=== PATIENT | female | born 1990 | race Caucasian/White ===

== ENCOUNTER 2017-03-06 17:11 | Emergency (ER) | payer SELFPAY ==
[2017-03-06 17:20] VITALS: BP 114/75
--- NOTE | 2017-03-06 18:12 | RAD ---
HISTORY: Subacute trauma, left lateral rib pain COMPARISONS: None VIEWS: 7, Frontal view of the chest with frontal and oblique views of the left hemithorax FINDINGS: There is no displaced rib fracture or pneumothorax. The visualized lungs are clear. IMPRESSION: NO DISPLACED RIB FRACTURE OR PNEUMOTHORAX
--- NOTE | 2017-03-06 18:41 | UC ---
Truncal Trauma HPI - HPI Summary HPI Summary: Shopping cart hit left ribs, tenderness and soft tissue swelling at area of injury. No fever, no shortness of breath. 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 Hx Last Menstrual Period: 03/02/17 Onset/Duration: Sudden Onset, Lasting Days, Still Present Onset Of Pain: Post Accident Severity Initially: Mild Severity Currently: Mild Mechanism Of Injury: Blunt Trauma Aggravating Factor(s): Movement, Deep Breathing, Cough Alleviating factor(s): Nothing Associated Signs And Symptoms: Positive: Negative - Allergies/Home Medications Allergies/Adverse Reactions: Allergies Allergy/AdvReac Type Severity Reaction Status Date / Time No Known Allergies Allergy Verified 02/03/14 14:29 Home Medications: Home Medications Ibuprofen TAB* [Motrin TAB* 800 MG] 800 mg PO Q6H 03/06/17 [History Confirmed ] PMH/Surg Hx/FS Hx/Imm Hx Previously Healthy: Yes - Surgical History Surgical History: Yes Surgery Procedure, Year, and Place: X3, choley - Family History Known Family History: Positive: None Negative: Renal Disease, Respiratory Disease - Social History Occupation: Employed Full-time Lives: With Family Alcohol Use: None Substance Use Type: None Smoking Status (MU): Light Every Day Tobacco Smoker Type: Cigarettes Review of Systems Constitutional: Negative Skin: Negative Eyes: Negative ENT: Negative Respiratory: Negative Cardiovascular: Negative Gastrointestinal: Negative Genitourinary: Negative Motor: Negative Neurovascular: Negative Musculoskeletal: Arthralgia, Myalgia Neurological: Negative Psychological: Negative All Other Systems Reviewed And Are Negative: Yes Physical Exam Triage Information Reviewed: Yes Appearance: Well-Appearing, Well-Nourished, Pain Distress - mild Vital Signs: Initial Vital Signs Temp 98.1 F 03/06/17 17:15 Pulse 80 03/06/17 17:15 Resp 18 03/06/17 17:15 BP 114/75 03/06/17 17:15 Pulse Ox 100 03/06/17 17:15 Vital Signs Reviewed: Yes Eye Exam: Normal ENT Exam: Normal ENT: Positive: Normal ENT inspection, Hearing grossly normal, TMs normal Dental Exam: Normal Neck exam: Normal Neck: Positive: Supple, Nontender Respiratory Exam: Normal Respiratory: Positive: Chest non-tender, Lungs clear, Normal breath sounds, No respiratory distress, No accessory muscle use Cardiovascular Exam: Normal Cardiovascular: Positive: RRR, No Murmur, Pulses Normal Abdominal Exam: Normal Musculoskeletal: Positive: Strength Intact, ROM Intact, Other: - tender to palpation left ribs Neurological Exam: Normal Psychological Exam: Normal Skin Exam: Normal Truncal Trauma Course/Dx - Differential Dx/Diagnosis Differential Diagnosis/HQI/PQRI: Chest Wall Contusion, Rib Fracture Provider Diagnoses: left rib contusion/sprain Discharge - Discharge Plan Condition: Stable Disposition: HOME Prescriptions: HYDROcodone/ACETAMIN 5-325 MG* [[place] 5-325 TAB*] 1 tab PO Q8H PRN #9 tab MDD THREE TABS PRN Reason: Pain Patient Education Materials: Rib Contusion (ED) Referrals: [facility] [Outside] Berto VOSS,Landon Marino [Primary Care Provider] -
== END 2017-03-06 18:30 | disposition home or self-care (01) ==
LOC: UCEAST 17:11
DX: S20.212A Contusion of left front wall of thorax, initial encounter (principal); S23.41XA Sprain of ribs, initial encounter; W22.8XXA Striking against or struck by other objects, initial encounter; Y93.9 Activity, unspecified; Y92.9 Unspecified place or not applicable; Y99.9 Unspecified external cause status; Z72.0 Tobacco use
CPT/HCPCS: 99213; G0463

== ENCOUNTER 2017-03-13 14:46 | Emergency (ER) | payer SELFPAY ==
[2017-03-13 14:54] VITALS: BP 131/85
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
[2017-03-13] MEDS ORDERED: HYDROcodone/ACETAMIN 5-325 MG* 1 TAB PO ONE (15:05)
--- NOTE | 2017-03-13 16:01 | RAD ---
HISTORY: Left anterior pain COMPARISONS: March 06, 2017 VIEWS: 5, Frontal view of the chest with frontal and oblique views of the left hemithorax FINDINGS: There is no displaced rib fracture or pneumothorax. The visualized lungs are clear. IMPRESSION: THERE IS NO DISPLACED RIB FRACTURE OR PNEUMOTHORAX. IF THERE IS PERSISTENT CLINICAL CONCERN FOR OSSEOUS PATHOLOGY OF THE RIBS, BONE SCANNING MAY BE MORE SENSITIVE.
== END 2017-03-13 16:20 | disposition home or self-care (01) ==
LOC: UCEAST 14:46
DX: S20.211A Contusion of right front wall of thorax, initial encounter (principal); F17.210 Nicotine dependence, cigarettes, uncomplicated; W22.8XXA Striking against or struck by other objects, initial encounter; Y92.89 Other specified places as the place of occurrence of the external cause
CPT/HCPCS: 99212; G0463

== ENCOUNTER 2017-08-02 16:59 | Emergency (ER) | payer OTHER ==
[2017-08-02 18:38] LABS: Urine Bacteria Absent (Absent); Urine Bilirubin Negative (Negative); Urine Glucose Negative (Negative); Urine Nitrite Negative (Negative)
[2017-08-02 18:51] LABS: Hematocrit 34 % (35-47); Mean Corpuscular HGB Conc 33 g/dl (31-36); Mean Corpuscular Hemoglobin 27 pg (27-31); Mean Corpuscular Volume 82 fL (80-97); Mean Platelet Volume 9 um3 (7.4-10.4); Red Cell Distribution Width 17 % (10.5-15); White Blood Count 6.2 10^3/ul (3.5-10.8)
[2017-08-02 19:07] LABS: ALT 12 U/L (7-52); AST 11 U/L (13-39); Albumin 4.2 g/dL (3.2-5.2); Alkaline Phosphatase 72 U/L (34-104); Amylase 41 U/L (29-103); Anion Gap 7 mmol/L (2-11); BUN/Creatinine Ratio 12.7 (8-20); Blood Urea Nitrogen 7 mg/dL (6-24); C Reactive Protein < 1.00 mg/L (< 5.00); CO2 Carbon Dioxide 26 mmol/L (22-32); Calcium 9.2 mg/dL (8.6-10.3); Chloride 108 mmol/L (101-111); EGFR African American 171.8 (>60); EGFR Non-African American 133.6 (>60); Globulin 2.7 g/dL (2-4); Glucose 80 mg/dL (70-100); Lipase 29 U/L (11.0-82.0); Magnesium 2.2 mg/dL (1.9-2.7); Sodium 141 mmol/L (133-145); Total Protein 6.9 g/dL (6.4-8.9)
[2017-08-02] MEDS ORDERED: Potassium Chlor TAB* 20 MEQ TAB.ER PO ONE (19:59)
[2017-08-02 21:27] VITALS: BP 119/73
--- NOTE | 2017-08-03 02:36 | ED ---
Luis Jung Nilda, scribed for Batsheva Shankar MD on 08/02/17 at 2113 . Complex/Multi-Sys Presentation - HPI Summary HPI Summary: This patient is a 26 year old F presenting to [facility] accompanied by friends with a chief complaint of constant severe dental pain (lower back molar on left and right) for the past two months. The patient rates the pain 8/10 in severity. Symptoms aggravated by nothing. Dental pain alleviated by "Goodys packets" ( acetaminophen)though not alleviated by Anbesol. Patient also reports left abd pain, insomnia due to pain, and occasional SOB. Pt notes normal BM today. Per triage note, pt had tubal ligation 4 years ago but has had 3 positive tests (ClearBlue brand name) during the past two days and is worried if she is . Pt brought one of the positive tests to show me and it does indeed read "positive". Patient denies pain and burning with urination. Pt states that she "missed her period for July". LNMP June 20. NKDA including penicillin. Medications include vitamins. She states she is supposed to be on iron pills but is not taking them due to taste. She takes gummy vitamins instead. - History Of Current Complaint Chief Complaint: EDAbdPain Time Seen by Provider: 08/02/17 18:17 Hx Obtained From: Patient Onset/Duration: Sudden Onset, Lasting Days Timing: Constant Severity Currently: Severe - 8/10 Severity Initially: Severe Location: Pain At: - lower molars bilat Character: Sharp Aggravating Factor(s): nothing Alleviating Factor(s): Dental pain alleviated by Goodys packets though not alleviated by Anbesol. Associated Signs And Symptoms: Positive: Other - constant severe dental pain ( lower back molar on left and right),reports left abd pain, insomnia due to pain , and occasional SOB. Pt notes normal BM today. Per triage note, pt had tubal ligation 4 years ago but has had 3 positive tests (ClearBlue) during the past two days. Patient denies pain and burning with urination. Missed period. - Allergies/Home Medications Allergies/Adverse Reactions: Allergies Allergy/AdvReac Type Severity Reaction Status Date / Time Acetaminophen Allergy Severe See Comment Verified 03/13/17 14:55 [From Tylenol Children's] PMH/Surg Hx/FS Hx/Imm Hx Previously Healthy: Yes Sensory History: Denies: Hx Legally Blind EENT History: Denies: Hx Deafness Psychiatric History: Reports: Hx Depression Denies: Hx Eating Disorder, Hx of Violent Episodes Against Others - Surgical History Surgery Procedure, Year, and Place: X3, cholecystectomy; tubal ligation Infectious Disease History: No Infectious Disease History: Denies: Traveled Outside the [place] in Last 30 Days - Family History Known Family History: Positive: Hypertension, Other - cancer- grandfather Negative: Renal Disease, Respiratory Disease - Social History Alcohol Use: None Hx Substance Use: No Substance Use Type: Reports: None Hx Tobacco Use: Yes Smoking Status (MU): Current Every Day Smoker Type: Cigarettes Amount Used/How Often: 1 PPD Have You Smoked in the Last Year: Yes Review of Systems Constitutional: Negative Positive: Dental Pain Cardiovascular: Negative Positive: Shortness Of Breath Positive: Abdominal Pain, Other - normal BM Positive: other - positive tests, missed period. Negative: burning, pain Skin: Negative Neurological: Other - insomnia due to pain Psychological: Normal All Other Systems Reviewed And Are Negative: Yes Physical Exam Triage Information Reviewed: Yes Vital Signs On Initial Exam: Initial Vitals Temp Pulse Resp BP Pulse Ox 98.0 F 82 18 116/77 100 08/02/17 17:03 08/02/17 17:03 08/02/17 17:03 08/02/17 17:03 08/02/17 17:03 Vital Signs Reviewed: Yes Appearance: Positive: Well-Appearing, Well-Nourished, Pain Distress Skin: Positive: Warm, Skin Color Reflects Adequate Perfusion Head/Face: Positive: Normal Head/Face Inspection Eyes: Positive: EOMI, BRENT, Conjunctiva Clear ENT: Positive: Normal ENT inspection, Pharynx normal Dental: Positive: Gross Decay/Caries @, Dental Fracture @, Other - Left lower first molar broken and dental carries; Right lower second molar broken with dental carries Neck: Positive: Supple, Nontender, No Lymphadenopathy Respiratory/Lung Sounds: Positive: Clear to Auscultation, Breath Sounds Present , Other - no respiratory distress Cardiovascular: Positive: RRR, Other - brisk capillary refill, normal pulses, S1 , S2. Negative: Murmur Abdomen Description: Positive: No Organomegaly, Soft, Other: - mildly diffuse tenderness (more on left than right), no rebound. Negative: Bruit, CVA Tenderness (R), CVA Tenderness (L), Distended, Guarding, Hernia @, Hepatomegaly , Peritoneal Signs, Pulsatile Mass, Splenomegaly Bowel Sounds: Positive: Present Musculoskeletal: Positive: Strength/ROM Intact Neurological: Positive: Sensory/Motor Intact, Alert, Oriented to Person Place, Time, Facial Symmetry, Speech Normal, Other - nml muscle tone Psychiatric: Positive: Normal - Valorie Coma Scale Coma Scale Total: 15 Diagnostics - Vital Signs Vital Signs Temp Pulse Resp BP Pulse Ox 08/02/17 17:03 98.0 F 82 18 116/77 100 - Laboratory Lab Results: Lab Results 08/02/17 08/02/17 08/02/17 Range/Units 18:20 18:42 18:42 WBC (3.5-10.8) 10^3/ul RBC (4.0-5.4) 10^6/ul Hgb (12.0-16.0) g/dl Hct (35-47) % MCV (80-97) fL MCH (27-31) pg MCHC (31-36) g/dl RDW (10.5-15) % Plt Count (150-450) 10^3/ul MPV (7.4-10.4) um3 Neut % (Auto) (38-83) % Lymph % (Auto) (25-47) % [place] % (Auto) (1-9) % Eos % (Auto) (0-6) % Baso % (Auto) (0-2) % Absolute Neuts (auto) (1.5-7.7) 10^3/ul Absolute Lymphs (auto) (1.0-4.8) 10^3/ul Absolute Monos (auto) (0-0.8) 10^3/ul Absolute Eos (auto) (0-0.6) 10^3/ul Absolute Basos (auto) (0-0.2) 10^3/ul Absolute Nucleated RBC 10^3/ul Nucleated RBC % INR (Anticoag Therapy) (0.89-1.11) Sodium 141 (133-145) mmol/L Potassium 3.0 L (3.5-5.0) mmol/L Chloride 108 (101-111) mmol/L Carbon Dioxide 26 (22-32) mmol/L Anion Gap 7 (2-11) mmol/L BUN 7 (6-24) mg/dL Creatinine 0.55 (0.51-0.95) mg/dL Est GFR ( Amer) 171.8 (>60) Est GFR (Non-Af Amer) 133.6 (>60) BUN/Creatinine Ratio 12.7 (8-20) Glucose 80 (70-100) mg/dL Lactic Acid (0.5-2.0) mmol/L Calcium 9.2 (8.6-10.3) mg/dL Magnesium 2.2 (1.9-2.7) mg/dL Total Bilirubin 0.30 (0.2-1.0) mg/dL AST 11 L (13-39) U/L ALT 12 (7-52) U/L Alkaline Phosphatase 72 (34-104) U/L C-Reactive Protein < 1.00 (< 5.00) mg/L B-Natriuretic Peptide 18 ( - 100) pg/mL Total Protein 6.9 (6.4-8.9) g/dL Albumin 4.2 (3.2-5.2) g/dL Globulin 2.7 (2-4) g/dL Albumin/Globulin Ratio 1.6 (1-3) Amylase 41 (29-103) U/L Lipase 29 (11.0-82.0) U/L Beta HCG, Quant < 0.60 mIU/mL Urine Color Yellow Urine Appearance Clear Urine pH 7.0 (5-9) Ur Specific [place] 1.018 (1.010-1.030) Urine Protein Negative (Negative) Urine Ketones Negative (Negative) Urine Blood 1+ H (Negative) Urine Nitrate Negative (Negative) Urine Bilirubin Negative (Negative) Urine Urobilinogen Negative (Negative) Ur Leukocyte Esterase Negative (Negative) Urine WBC (Auto) Trace(0-5/hpf) (Absent) Urine RBC (Auto) 3+(>10/hpf) H (Absent) Ur Squamous Epith Cells Present H (Absent) Urine Bacteria Absent (Absent) Urine Glucose Negative (Negative) 08/02/17 08/02/17 08/02/17 Range/Units 18:42 18:42 18:42 WBC 6.2 (3.5-10.8) 10^3/ul RBC 4.10 (4.0-5.4) 10^6/ul Hgb 11.0 L (12.0-16.0) g/dl Hct 34 L (35-47) % MCV 82 (80-97) fL MCH 27 (27-31) pg MCHC 33 (31-36) g/dl RDW 17 H (10.5-15) % Plt Count 210 (150-450) 10^3/ul MPV 9 (7.4-10.4) um3 Neut % (Auto) 49.5 (38-83) % Lymph % (Auto) 38.2 (25-47) % [place] % (Auto) 7.3 (1-9) % Eos % (Auto) 4.2 (0-6) % Baso % (Auto) 0.8 (0-2) % Absolute Neuts (auto) 3.1 (1.5-7.7) 10^3/ul Absolute Lymphs (auto) 2.4 (1.0-4.8) 10^3/ul Absolute Monos (auto) 0.4 (0-0.8) 10^3/ul Absolute Eos (auto) 0.3 (0-0.6) 10^3/ul Absolute Basos (auto) 0 (0-0.2) 10^3/ul Absolute Nucleated RBC 0 10^3/ul Nucleated RBC % 0.1 INR (Anticoag Therapy) 1.02 (0.89-1.11) Sodium (133-145) mmol/L Potassium (3.5-5.0) mmol/L Chloride (101-111) mmol/L Carbon Dioxide (22-32) mmol/L Anion Gap (2-11) mmol/L BUN (6-24) mg/dL Creatinine (0.51-0.95) mg/dL Est GFR ( Amer) (>60) Est GFR (Non-Af Amer) (>60) BUN/Creatinine Ratio (8-20) Glucose (70-100) mg/dL Lactic Acid 1.8 (0.5-2.0) mmol/L Calcium (8.6-10.3) mg/dL Magnesium (1.9-2.7) mg/dL Total Bilirubin (0.2-1.0) mg/dL AST (13-39) U/L ALT (7-52) U/L Alkaline Phosphatase (34-104) U/L C-Reactive Protein (< 5.00) mg/L B-Natriuretic Peptide ( - 100) pg/mL Total Protein (6.4-8.9) g/dL Albumin (3.2-5.2) g/dL Globulin (2-4) g/dL Albumin/Globulin Ratio (1-3) Amylase (29-103) U/L Lipase (11.0-82.0) U/L Beta HCG, Quant mIU/mL Urine Color Urine Appearance Urine pH (5-9) Ur Specific [place] (1.010-1.030) Urine Protein (Negative) Urine Ketones (Negative) Urine Blood (Negative) Urine Nitrate (Negative) Urine Bilirubin (Negative) Urine Urobilinogen (Negative) Ur Leukocyte Esterase (Negative) Urine WBC (Auto) (Absent) Urine RBC (Auto) (Absent) Ur Squamous Epith Cells (Absent) Urine Bacteria (Absent) Urine Glucose (Negative) Result Diagrams: 08/02/17 18:42 08/02/17 18:42 Lab Statement: Any lab studies that have been ordered have been reviewed, and results considered in the medical decision making process. Complex Multi-Symp Course/Dx Assessment/Plan: Pt is a 26 y/o F with a chief complaint of dental pain as well as request for test. Four years ago, pt had tubal ligation but for the past two days pt has had 3 positive tests at home. Pt does not want narcotics prescribed for pain. Medications and allergies reviewed. Beta HCG Quantitative is negative (<0.60). Pt is stable and will be D/C with diagnosis of dental abscess, acute abd pain, and evaluation for and prescription for amoxicillin. Pt is agreeable with this plan. - Diagnoses Provider Diagnoses: Dental abscess, Evaluation for , Acute abdominal pain Discharge - Discharge Plan Condition: Stable Disposition: HOME Prescriptions: Amoxicillin PO (*) [Amoxicillin 500 MG CAP*] 500 mg PO TID #30 cap Patient Education Materials: Dental Abscess (ED), Acute Abdominal Pain (ED) Forms: *Work Release Referrals: Berto VOSS,Landon Marino [Primary Care Provider] - 2 Days Additional Instructions: If another week goes by and you do not get your period, repeat test. Take amoxicillin and ibuprofen as directed. See dentist as soon as possible. RETURN TO THE EMERGENCY DEPARTMENT FOR CHANGING OR WORSENING SYMPTOMS. The documentation as recorded by the Luis montero Nilda accurately reflects the service I personally performed and the decisions made by me, Batsheva Shankar MD.
== END 2017-08-02 21:26 | disposition home or self-care (01) ==
LOC: ED 16:59
DX: R06.02 Shortness of breath (principal); R10.9 Unspecified abdominal pain; K04.7 Periapical abscess without sinus; Z34.90 Encounter for supervision of normal pregnancy, unspecified, unspecified trimester
CPT/HCPCS: 36415; 80053; 81003; 81015; 82150; 83605; 83690; 83735; 83880; 84702; 85025; 85610; 86140; 99284; A9270-GY

== ENCOUNTER 2018-11-11 19:25 | Emergency (ER) | payer SELFPAY ==
[2018-11-11 20:15] LABS: Urine Appearance Cloudy; Urine Bacteria Absent (Absent); Urine Bilirubin Negative (Negative); Urine Blood Negative (Negative); Urine Color Yellow; Urine Glucose Negative (Negative); Urine Ketones Trace (Negative); Urine Nitrite Negative (Negative); Urine Protein Negative (Negative); Urine Red Blood Cell Absent (Absent); Urine Specific Gravity 1.031 (1.010-1.030); Urine Squamous Epithelial Cell Present (Absent); Urine Urobilinogen Negative (Negative); Urine White Blood Cell 2+(11-20/hpf) (Absent)
[2018-11-11 21:39] LABS: ABS Basophils 0.1 10^3/ul (0-0.2); ABS Eosinophils 0.5 10^3/ul (0-0.6); ABS Lymphocytes 2.9 10^3/ul (1.0-4.8); ABS Monocytes 0.6 10^3/ul (0-0.8); ABS Neutrophils 3.4 10^3/ul (1.5-7.7); ABS Nucleated RBC 0 10^3/ul; Eosinophil % 6.3 %; Hematocrit 32 % (35-47); Hemoglobin 10.5 g/dl (12.0-16.0); Lymphocyte % 39.2 %; Mean Corpuscular HGB Conc 33 g/dl (31-36); Mean Corpuscular Hemoglobin 26 pg (27-31); Mean Corpuscular Volume 77 fL (80-97); Mean Platelet Volume 8.2 fL (7.4-10.4); Nucleated Red Blood Cells % 0; Platelet Count 263 10^3/ul (150-450); Red Blood Count 4.12 10^6/ul (4.00-5.40); Red Cell Distribution Width 19 % (10.5-15); White Blood Count 7.5 10^3/ul (3.5-10.8)
[2018-11-11 21:57] LABS: ALT 9 U/L (7-52); AST 11 U/L (13-39); Albumin 4.2 g/dL (3.2-5.2); Albumin/Globulin Ratio 1.8 (1-3); Alkaline Phosphatase 73 U/L (34-104); Anion Gap 6 mmol/L (2-11); BUN/Creatinine Ratio 17.2 (8-20); Blood Urea Nitrogen 11 mg/dL (6-24); C Reactive Protein < 1.00 mg/L (<8.01); CO2 Carbon Dioxide 28 mmol/L (22-32); Calcium 9.1 mg/dL (8.6-10.3); Chloride 106 mmol/L (101-111); EGFR African American 134.7 (>60); EGFR Non-African American 111.3 (>60); Globulin 2.4 g/dL (2-4); Glucose 99 mg/dL (70-100); Potassium 3.5 mmol/L (3.5-5.0); Sodium 140 mmol/L (135-145); Total Protein 6.6 g/dL (6.4-8.9)
[2018-11-11 22:03] LABS: HCG Pregnancy < 0.60 mIU/mL
[2018-11-11] MEDS ORDERED: Ketorolac INJ* 30 MG/ML 1 ML VIAL IV PUSH ONE (23:17)
--- NOTE | 2018-11-12 00:01 | ED ---
GI/ HPI - HPI Summary HPI Summary: 27-year-old female presents with abdominal pain for the past 2 days. States that it mostly on the right side of her abdomen. She admits to right-sided back pain. No injury. No loss of bowel or bladder. No saddle anesthesias. She denies any urinary symptoms. No hematuria. No blood in her stool. She states she did have loose stool today. She admits to abnormal vaginal discharge but she just had a pelvic exam when was seen at [place] yesterday. She denies any fevers. She admits to some nausea but no vomiting. She's never had this pain before. She's had her gallbladder removed. She states she's had decreased appetite. She has been using a lot of ibuprofen. - History of Current Complaint Chief Complaint: EDAbdPain Time Seen by Provider: 11/11/18 23:10 Stated Complaint: ABD PAIN SHOT ALL THE WAY DOWN MY LEG/CHEST PER PT Hx Last Menstrual Period: 1 WEEK AGO Pain Intensity: 7 - Allergy/Home Medications Allergies/Adverse Reactions: Allergies Allergy/AdvReac Type Severity Reaction Status Date / Time MS Acetaminophen Allergy Severe See Comment Verified 03/13/17 14:55 [From Tylenol [facility]] PMH/Surg Hx/FS Hx/Imm Hx Endocrine/Hematology History: Denies: Hx Anticoagulant Therapy Cardiovascular History: Denies: Hx Myocardial Infarction Sensory History: Denies: Hx Legally Blind, Hx Deafness Opthamlomology History: Denies: Hx Legally Blind Psychiatric History: Reports: Hx Depression Denies: Hx Eating Disorder, Hx of Violent Episodes Against Others - Surgical History Surgery Procedure, Year, and Place: X3, cholecystectomy; tubal ligation Infectious Disease History: No Infectious Disease History: Denies: Traveled Outside the [place] in Last 30 Days - Family History Known Family History: Positive: None, Hypertension, Other - cancer- grandfather Negative: Renal Disease, Respiratory Disease - Social History Alcohol Use: None Hx Substance Use: No Substance Use Type: Reports: None Hx Tobacco Use: Yes Smoking Status (MU): Current Every Day Smoker Type: Cigarettes Amount Used/How Often: 1 PPD Have You Smoked in the Last Year: Yes Review of Systems Negative: Fever Negative: Chest Pain Negative: Shortness Of Breath Positive: Abdominal Pain, Nausea. Negative: Vomiting, Diarrhea All Other Systems Reviewed And Are Negative: Yes Physical Exam Triage Information Reviewed: Yes Vital Signs On Initial Exam: Initial Vitals Temp Pulse Resp BP Pulse Ox 98.6 F 105 18 143/84 97 11/11/18 19:28 11/11/18 19:28 11/11/18 19:28 11/11/18 19:28 11/11/18 19:28 Vital Signs Reviewed: Yes Appearance: Positive: Well-Appearing Skin: Positive: Warm, Dry Head/Face: Positive: Normal Head/Face Inspection Eyes: Positive: Normal, Conjunctiva Clear ENT: Positive: Pharynx normal Respiratory/Lung Sounds: Positive: Clear to Auscultation, Breath Sounds Present Cardiovascular: Positive: Normal, RRR Abdomen Description: Positive: Soft, Other: - diffusely tender Bowel Sounds: Positive: Present Musculoskeletal: Positive: Other - tenderness lower right side of back, neg SLR , good pulses Neurological: Positive: Normal Psychiatric: Positive: Normal Diagnostics - Vital Signs Vital Signs Temp Pulse Resp BP Pulse Ox 11/11/18 23:20 81 97/73 99 11/11/18 23:19 74 99 11/11/18 21:32 98.5 F 85 18 119/74 98 11/11/18 19:28 98.6 F 105 18 143/84 97 - Laboratory Lab Results: Lab Results 11/11/18 11/11/18 11/11/18 Range/Units 19:49 21:27 21:27 WBC 7.5 (3.5-10.8) 10^3/ul RBC 4.12 (4.00-5.40) 10^6/ul Hgb 10.5 L (12.0-16.0) g/dl Hct 32 L (35-47) % MCV 77 L (80-97) fL MCH 26 L (27-31) pg MCHC 33 (31-36) g/dl RDW 19 H (10.5-15) % Plt Count 263 (150-450) 10^3/ul MPV 8.2 (7.4-10.4) fL Neut % (Auto) 45.6 % Lymph % (Auto) 39.2 % [place] % (Auto) 7.9 % Eos % (Auto) 6.3 % Baso % (Auto) 1.0 % Absolute Neuts (auto) 3.4 (1.5-7.7) 10^3/ul Absolute Lymphs (auto) 2.9 (1.0-4.8) 10^3/ul Absolute Monos (auto) 0.6 (0-0.8) 10^3/ul Absolute Eos (auto) 0.5 (0-0.6) 10^3/ul Absolute Basos (auto) 0.1 (0-0.2) 10^3/ul Absolute Nucleated RBC 0 10^3/ul Nucleated RBC % 0 Sodium 140 (135-145) mmol/L Potassium 3.5 (3.5-5.0) mmol/L Chloride 106 (101-111) mmol/L Carbon Dioxide 28 (22-32) mmol/L Anion Gap 6 (2-11) mmol/L BUN 11 (6-24) mg/dL Creatinine 0.64 (0.51-0.95) mg/dL Est GFR ( Amer) 134.7 (>60) Est GFR (Non-Af Amer) 111.3 (>60) BUN/Creatinine Ratio 17.2 (8-20) Glucose 99 (70-100) mg/dL Calcium 9.1 (8.6-10.3) mg/dL Total Bilirubin 0.20 (0.2-1.0) mg/dL AST 11 L (13-39) U/L ALT 9 (7-52) U/L Alkaline Phosphatase 73 (34-104) U/L C-Reactive Protein < 1.00 (<8.01) mg/L Total Protein 6.6 (6.4-8.9) g/dL Albumin 4.2 (3.2-5.2) g/dL Globulin 2.4 (2-4) g/dL Albumin/Globulin Ratio 1.8 (1-3) Lipase 32 (11.0-82.0) U/L Beta HCG, Quant < 0.60 mIU/mL Urine Color Yellow Urine Appearance Cloudy Urine pH 5.0 (5-9) Ur Specific [place] 1.031 H (1.010-1.030) Urine Protein Negative (Negative) Urine Ketones Trace A (Negative) Urine Blood Negative (Negative) Urine Nitrate Negative (Negative) Urine Bilirubin Negative (Negative) Urine Urobilinogen Negative (Negative) Ur Leukocyte Esterase Trace A (Negative) Urine WBC (Auto) 2+(11-20/hpf) A (Absent) Urine RBC (Auto) Absent (Absent) Ur Squamous Epith Cells Present A (Absent) Urine Bacteria Absent (Absent) Urine Glucose Negative (Negative) Urine Ascorbic Acid * A (Negative) Result Diagrams: 11/11/18 21:27 11/11/18 21:27 Lab Statement: Any lab studies that have been ordered have been reviewed, and results considered in the medical decision making process. - Ultrasound No standard instances Ultrasound Interpretation Completed By: Radiologist Summary of Ultrasound Findings: Sonographically normal uterus and ovaries. Re-Evaluation - Re-Evaluation First Eval Re-Evaluation Time: 00:15 Comment: patient does not want to do CT anymore. GIGU Course/Dx - Course Course Of Treatment: 27-year-old female presents with abdominal pain for the past 2 days. States that it mostly on the right side of her abdomen. She admits to right-sided back pain. No injury. No loss of bowel or bladder. No saddle anesthesias. She denies any urinary symptoms. No hematuria. No blood in her stool. She states she did have loose stool today. She admits to abnormal vaginal discharge but she just had a pelvic exam when was seen at [place] yesterday. She denies any fevers. She admits to some nausea but no vomiting. She's never had this pain before. She's had her gallbladder removed. She states she's had decreased appetite. She has been using a lot of ibuprofen. On exam has diffuse abdominal tenderness. Patient though is flinching when not even touching the abdomen so cannot really evaluate truly where is tender. Tenderness of right sided lower back. Negative straight leg raise. Neurovascular intact. wbc normal. CRP normal. Urine is likely contaminant will wait for culture to see if a treat as UTI as no symptoms at this time. Patient declined pelvic has just had a pelvic done. Ultrasound is normal. Discussed getting a CT and initially patient wanted a CT but then decided to hold off. Told if symptoms worsen to return. patient requesting toradol for pain. Patient understands agrees the plan. - Diagnoses Differential Diagnoses - Female: Appendicitis, Ovarian Cyst, STD, Urinary Tract Infection Provider Diagnoses: Abdominal pain Discharge - Sign-Out/Discharge Documenting (check all that apply): Patient Departure Patient Received Moderate/Deep Sedation with Procedure: No - Discharge Plan Condition: Good Disposition: HOME Prescriptions: Ketorolac TAB * [Toradol TAB *] 10 mg PO Q8H #12 tab Patient Education Materials: Acute Abdominal Pain (ED) Referrals: Berto VOSS,Landon Marino [Primary Care Provider] - Additional Instructions: Take Tylenol or ibuprofen every 6 hours for pain apply heat Follow up with primary Return to ED if develop any new or worsening symptoms - Billing Disposition and Condition Condition: GOOD Disposition: Home
[2018-11-12 01:48] VITALS: BP 115/66
== END 2018-11-12 01:00 | disposition home or self-care (01) ==
LOC: ED 19:25
DX: R10.9 Unspecified abdominal pain (principal); R10.2 Pelvic and perineal pain; R11.0 Nausea; F17.210 Nicotine dependence, cigarettes, uncomplicated
CPT/HCPCS: 36415; 76856; 80053; 81003; 81015; 83690; 84702; 85025; 86140; 87086; 96374; 99283; J1885

== ENCOUNTER → 2018-11-20 18:17 | Emergency (ER) | payer SELFPAY ==
[~2018-11-20 18:17] MED LIST: Clindamycin 900 MG/D5W BAG(*) 900 MG/50 ML BAG IVPB ONE; Iohexol 300* (CONTRAST) 10 ML SDV IV ONE; Morphine 10 MG/ML VIAL (1 ml) IV ONE; Ondansetron INJ* 2 MG/ML VIAL IV ONE
--- NOTE | 2018-11-20 18:58 | ED ---
Throat Pain/Nasal Congestion - HPI Summary HPI Summary: Patient complains of waking up Wednesday morning with swelling to right jaw. Patient went to [place] ED on Wednesday, states they told her she had an abscess , I&D was performed, IV antibiotics were given and patient was put on clindamycin and hydrocodone. Patient took first clindamycin last night, states symptoms are much worse amount of throat pain. Patient drooling mildly from right side mouth. Denies fever, cough, FELIPE, neck stiffness, SOB, N/V/D, CP, abdominal pain, change in urine, change in BM. Medical history is none. - History of Current Complaint Chief Complaint: EDFacialInjury Time Seen by Provider: 11/20/18 18:40 Hx Obtained From: Patient Onset/Duration: Sudden Onset, Lasting Days Severity: Severe Associated Signs And Symptoms: Positive: Dysphagia, Drooling. Negative: Hoarseness Cough: None - Allergies/Home Medications Allergies/Adverse Reactions: Allergies Allergy/AdvReac Type Severity Reaction Status Date / Time MS Acetaminophen Allergy Severe See Comment Verified 11/20/18 18:32 [From Tylenol [facility]] Home Medications: Home Medications Clindamycin HCl 150 mg PO QID 11/20/18 [History Confirmed 11/20/18] Hydrocodone/Acetaminophen [[place] 5-325 Tablet] 5 mg PO Q6HR 11/20/18 [History Confirmed 11/20/18] PMH/Surg Hx/FS Hx/Imm Hx Endocrine/Hematology History: Denies: Hx Anticoagulant Therapy Cardiovascular History: Denies: Hx Myocardial Infarction History: Denies: Hx Dialysis Sensory History: Denies: Hx Legally Blind, Hx Deafness Opthamlomology History: Denies: Hx Legally Blind EENT History: Denies: Hx Deafness Neurological History: Denies: Hx Dementia Psychiatric History: Reports: Hx Depression Denies: Hx Eating Disorder, Hx of Violent Episodes Against Others - Surgical History Surgery Procedure, Year, and Place: X3, cholecystectomy; tubal ligation Infectious Disease History: No Infectious Disease History: Denies: Traveled Outside the [place] in Last 30 Days - Family History Known Family History: Positive: None, Hypertension, Other - cancer- grandfather Negative: Renal Disease, Respiratory Disease - Social History Alcohol Use: None Hx Substance Use: No Substance Use Type: Reports: None Hx Tobacco Use: Yes Smoking Status (MU): Current Every Day Smoker Type: Cigarettes Amount Used/How Often: 1 PPD Have You Smoked in the Last Year: Yes Review of Systems Constitutional: Negative Eyes: Negative Positive: Dental Pain, Sore Throat, Other - right jaw pain Cardiovascular: Negative Respiratory: Negative Gastrointestinal: Negative Genitourinary: Negative Musculoskeletal: Negative Skin: Negative Neurological: Negative Psychological: Normal All Other Systems Reviewed And Are Negative: Yes Physical Exam - Summary Physical Exam Summary: Significant swelling to right side lower jaw. ENT exam normal, patent airway. No apical abscess noted to teeth or gums on right side mouth. Triage Information Reviewed: Yes Vital Signs On Initial Exam: Initial Vitals Temp Pulse Resp BP Pulse Ox 0 F 91 16 133/80 97 11/20/18 18:28 11/20/18 18:28 11/20/18 18:28 11/20/18 18:28 11/20/18 18:28 Vital Signs Reviewed: Yes Appearance: Positive: Well-Appearing Skin: Positive: Warm Head/Face: Positive: Normal Head/Face Inspection Eyes: Positive: Normal ENT: Positive: Normal ENT inspection Dental: Positive: Gross Decay/Caries @ Neck: Positive: Supple Respiratory/Lung Sounds: Positive: Clear to Auscultation Cardiovascular: Positive: Normal Abdomen Description: Positive: Nontender Musculoskeletal: Positive: Normal Neurological: Positive: Normal Psychiatric: Positive: Normal AVPU Assessment: Alert - Valorie Coma Scale Best Eye Response: 4 - Spontaneous Best Motor Response: 6 - Obeys Commands Best Verbal Response: 5 - Oriented Coma Scale Total: 15 Diagnostics - Vital Signs Vital Signs Temp Pulse Resp BP Pulse Ox 11/20/18 18:28 0 F 91 16 133/80 97 - Laboratory Result Diagrams: 11/20/18 19:10 11/20/18 19:10 Lab Statement: Any lab studies that have been ordered have been reviewed, and results considered in the medical decision making process. EENT Course/Dx - Course Course Of Treatment: Patient complains of waking up Wednesday morning with swelling to right jaw. Patient went to [place] ED on Wednesday, states they told her she had an abscess, I&D was performed, IV antibiotics were given and patient was put on clindamycin and hydrocodone. Patient took first clindamycin last night, states symptoms are much worse amount of throat pain. Patient drooling mildly from right side mouth. Denies fever, cough, FELIPE, neck stiffness , SOB, N/V/D, CP, abdominal pain, change in urine, change in BM. Medical history is none. Physical exam:Significant swelling to right side lower jaw. ENT exam normal, patent airway. No apical abscess noted to teeth or gums on right side mouth. Patient drooling from right side mouth. Patient continuously spitting saliva into garbage pail. Vital signs within normal limits. WBC within normal limits. Elevated elevated LFTs vs visit 11/11/18. Patient denies any symptoms other than jaw pain. CT maxillofacial positive for periodontal abscess measuring 2.4 x 0.4 cm. [facility] has no oral surgery on- call.[facility] as no oral surgery on-call. [facility] has no oral surgery on-call. Discussed patient with Dr. 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 He advised transfer rather than follow-up in clinic tomorrow morning. Patient swelling has progressed significantly since yesterday despite receiving IV antibiotics yesterday (per patient), and clindamycin by mouth last night with 2 doses of clindamycin 300mg by mouth today. [facility] accepted the patient ED to ED. Accepting physician Dr. Mireles. - Diagnoses Provider Diagnoses: Periodontal abscess Discharge - Sign-Out/Discharge Documenting (check all that apply): Patient Departure Patient Received Moderate/Deep Sedation with Procedure: No - Discharge Plan Condition: Stable Disposition: TRANS HIGHER LVL OF CARE FAC Referrals: Berto VOSS,Landon Marino [Primary Care Provider] - - Billing Disposition and Condition Condition: STABLE Disposition: Trans Higher Lvl of Care Fac
[2018-11-20 19:21] LABS: ABS Basophils 0 10^3/ul (0-0.2); ABS Eosinophils 0.2 10^3/ul (0-0.6); ABS Lymphocytes 1.3 10^3/ul (1.0-4.8); ABS Monocytes 0.7 10^3/ul (0-0.8); ABS Neutrophils 5.4 10^3/ul (1.5-7.7); ABS Nucleated RBC 0 10^3/ul; Eosinophil % 2.3 %; Hematocrit 33 % (33-41); Hemoglobin 10.4 g/dL (12.0-16.0); Lymphocyte % 16.9 %; Mean Corpuscular HGB Conc 32 g/dL (31-36); Mean Corpuscular Hemoglobin 25 pg (27-31); Mean Corpuscular Volume 77 fL (80-97); Mean Platelet Volume 8.7 fL (7.4-10.4); Nucleated Red Blood Cells % 0; Platelet Count 168 10^3/uL (150-450); Red Blood Count 4.24 10^6 /uL (3.70-4.87); Red Cell Distribution Width 18 % (10.5-15); White Blood Count 7.6 10^3/uL (3.5-10.8)
[2018-11-20 19:42] LABS: ALT 207 U/L (7-52); AST 105 U/L (13-39); Albumin 4.1 g/dL (3.2-5.2); Albumin/Globulin Ratio 1.4 (1-3); Alkaline Phosphatase 120 U/L (34-104); Anion Gap 7 mmol/L (2-11); BUN/Creatinine Ratio 8.9 (8-20); Blood Urea Nitrogen 5 mg/dL (6-24); C Reactive Protein 77.84 mg/L (<8.01); CO2 Carbon Dioxide 28 mmol/L (22-32); Calcium 9.3 mg/dL (8.6-10.3); Chloride 101 mmol/L (101-111); EGFR African American 157.1 (>60); EGFR Non-African American 129.9 (>60); Globulin 2.9 g/dL (2-4); Glucose 97 mg/dL (70-100); Potassium 3.3 mmol/L (3.5-5.0); Sodium 136 mmol/L (135-145)
[2018-11-20 19:46] LABS: HCG Pregnancy < 0.60 mIU/mL
[2018-11-21 00:42] VITALS: BP 131/71
== END | disposition short-term general hospital (02) ==
LOC: ED 18:17
DX: K05.219 Aggressive periodontitis, localized, unspecified severity (principal); K02.9 Dental caries, unspecified; Z88.6 Allergy status to analgesic agent; F17.210 Nicotine dependence, cigarettes, uncomplicated
CPT/HCPCS: 36415; 70487; 80053; 84702; 85025; 86140; 96365; 96375; 96376; 99285; J2270; J2405; Q9967